=== PATIENT | female | born 1970 | race Two or more races ===

== ENCOUNTER 2017-10-13 17:16 | Emergency (ER) | payer MEDICAID ==
[2017-10-13] MEDS: DIPHENHYDRAMINE 50 MG INJ IV (17:59)
[2017-10-13] MEDS: METHYLPREDNISOLONE 125 MG INJ IV (17:59)
[2017-10-13] MEDS: FAMOTIDINE 20 MG INJ IV (17:59)
[2017-10-13] MEDS: EPINEPHrine 1 MG INJ SC (18:14)
== END 2017-10-13 21:00 | disposition home or self-care (01) ==
LOC: FTE 17:16
DX: T78.09XA Anaphylactic reaction due to other food products, initial encounter (principal); F17.210 Nicotine dependence, cigarettes, uncomplicated
CPT/HCPCS: 96372; 96374; 96375; 99284-25

== ENCOUNTER 2017-10-15 00:20 | Emergency (ER) | payer MEDICAID ==
[2017-10-15] MEDS: METHYLPREDNISOLONE 125 MG INJ IV (02:52)
[2017-10-15] MEDS: SOD CHLORIDE 0.9% 1,000 ML IV (02:57)
== END 2017-10-15 05:13 | disposition home or self-care (01) ==
LOC: E/R 05:13
DX: R21 Rash and other nonspecific skin eruption (principal); Z87.891 Personal history of nicotine dependence
CPT/HCPCS: 93005; 96374; 99284-25